=== PATIENT | female | born 1970 | race Caucasian/White ===

== ENCOUNTER 2019-08-16 11:11 | Inpatient (IN) | payer OTHER ==
[~2019-08-16] VITALS: Ht 170.2 cm; Wt 98.8 kg
[~2019-08-16 11:11] MED LIST changes: -ACET325 PO; -ASPI81CH PO; -B Complex-Foli1 EACH PO; -LISI20 PO; -Loratadine10 MG PO; -METO50ER PO; -SPIR25 PO; -TORSE20 PO
[2019-08-16] MEDS ORDERED: ACET325 PO (13:12)
[2019-08-16] MEDS ORDERED: B Complex-Foli1 EACH PO (13:13)
[2019-08-16] MEDS ORDERED: Loratadine10 MG PO (13:13)
--- NOTE | 2019-08-16 18:13 | NUR ---
Echocardiogram using 0.50ml of Definity contrast performed.
--- NOTE | 2019-08-16 19:14 | NUR ---
a+o, call light in reach, rm air, tele, saline locked, shared bsr with noc nurse and pt
[2019-08-17 06:03] LABS: Anion Gap 7 mmol/L (6-16); Blood Urea Nitrogen 14 mg/dL (8-24); Bun/Creatinine Ratio 16.4 (12.0-20.0); CO2, Blood 26 mmol/L (21-32); Calcium, Blood 8.6 mg/dL (8.5-10.1); Chloride, Blood 108 mmol/L (98-108); Creatinine, Blood 0.85 mg/dL (0.40-1.00); Glomerular Filtration Rate >60 (60-); Glucose, Blood 115 mg/dL (70-99); Potassium, Blood 4.4 mmol/L (3.5-5.5); Sodium, Blood 141 mmol/L (136-145)
--- NOTE | 2019-08-17 19:34 | NUR ---
SHIFT SUMMARY OKSANA HAD A MIGRAINE THIS MORNING, GIVEN TRAMADOL WHICH WAS EFFECTIVE. ALSO TOOK OFF NITRO PATCH WHICH HAD ?BEEN IN PLACE SINCE THE ED? THIS HELPED HER HEADACHE QUITE A BIT. ENGRAVER SET UP OPERATOR CAME, PT AWARE OF PLANNED R AND L CARDIAC CATH TO BE DONE POSSIBLY TUESDAY. KEPT ON 2L FLUID RESTRICTION WITHOUT PROBLEMS.
[2019-08-18 05:03] LABS: Anion Gap 5 mmol/L (6-16); Blood Urea Nitrogen 17 mg/dL (8-24); Bun/Creatinine Ratio 18.6 (12.0-20.0); CO2, Blood 31 mmol/L (21-32); Calcium, Blood 9.1 mg/dL (8.5-10.1); Chloride, Blood 106 mmol/L (98-108); Creatinine, Blood 0.92 mg/dL (0.40-1.00); Glomerular Filtration Rate >60 (60-); Glucose, Blood 105 mg/dL (70-99); Magnesium, Blood 2.4 mg/dL (1.6-2.4); Potassium, Blood 4.1 mmol/L (3.5-5.5); Sodium, Blood 142 mmol/L (136-145)
--- NOTE | 2019-08-18 06:30 | NUR ---
SHIFT SUMMARY PT IS A 48 Y/O FEMALE, ADMITTED WITH SOB AND DX WITH NEW ONSET CHF. SHE IS A&O X 3, INDEPENDENT IN THE ROOM. PT DENIED ANY COMPLAINTS OF PAIN, NAUSEA OR INCREASED SOB. O2 REMAINED > 90% ON RA. TELE SHOWED NSR IN THE 80S. ALL OTHER VITALS STABLE. PT HAD SHOWED AND LINEN CHANGE THIS AM. NO ACUTE CHANGES IN PT CONDITION NOTED. WILL CONTINUE TO MONITOR AND TREAT PER EMAR UNTIL HAND OFF TO DAY SHIFT RN.
--- NOTE | 2019-08-18 09:39 | NUR ---
PT DENIED PAIN THIS MORNING, CONSENTED BY DR ROMAN FOR ANGIO. LEFT VIA WC AROUND 0820,
--- NOTE | 2019-08-18 09:41 | NUR ---
ATTEMPTED TO CALL REPORT TO SPECIALIST PHYSICIANS, SHE IS UNAVAILABLE AND WILL CALL ME BACK
--- NOTE | 2019-08-18 09:50 | NUR ---
LUNG SOUNDS CLEAR. NOTED TO HAVE SLIGHT SHORTNESS OF BREATH, BUT DENIES IT WHEN ASKED. WITH OCCASSIONAL PRODUCTIVE COUGH. PULSES PALPABLE TO RADIAL AND PEDAL PULSES.
--- NOTE | 2019-08-18 10:01 | NUR ---
0945-RECEIVED THIS PT FROM INSTRUCTOR PRODUCT INSPECTION. AFEBRILE. PT IS ALERT AND ORIENTED. EXPLAINED TO PATIENT EXPECTATIONS OF HER CARE. PT HAS R RADIAL ACCESS SITE WITH TR BAND INFLATED WITH 11 CC AIR.
--- NOTE | 2019-08-18 11:09 | NUR ---
1100-DR. ROMAN WAS CALLED REGARDING PT'S ELEVATED BLOOD PRESSURE IN THE 180s. ORDERS RECEIVED. 1109-CALLED PT'S MOTHER MARVIN PER PATIENT'S REQUEST, MOTHER WAS UPDATED OF PT'S STATUS.
--- NOTE | 2019-08-18 12:26 | NUR ---
DEFLATED ANOTHER 2 CC AIR FROM TR BAND
--- NOTE | 2019-08-18 15:29 | NUR ---
ASSUMED PT CARE. PT A&[id number] PAIN OR NAUSEA. TR BAND TO RIGHT RADIAL SITE SUCCESSFULLY REMOVED AND CLEAR, OCCLUSIVE DRESSING PLACE. NO BLEEDING OR HEMATOMA. ARMBOARD IN PLACE AND RIGHT ARM ELEVATED ON PILLOW. PT MADE AWARE THAT SHE IS NOT TO BEAR WEIGHT ON RIGHT ARM AND IS TO KEEP IT STRAIGHT. PT VERBALIZES UNDERSTANDING THAT SHE IS NOT TO USE THE RIGHT ARM. RIGHT HAND PINK AND WARM AND SPO2 WITH GOOD PLETH. ECG SHOWS SR WITH LBBB-RATE 70-80'S. LUNGS CLEAR AND SATS>90% ON RA. HOWEVER, PT AUDIBLY WZ AT TIME. OCCASIONAL MOIST, NONPRODUCTIVE COUGH NOTED. PT GETTING UP TO BEDSIDE COMMODE WITH MINIMAL ASSIST. REPORT PHONED TO HUMPHREY LEES IN PREP TO TRANSFER PT TO ROOM PCU 10.
--- NOTE | 2019-08-18 16:49 | NUR ---
ASSUMED CARE: PT ARRIVED FROM ICU TO PCU 10. REPORT RECIEVED FROM HUMPHREY KIRBY. PT RESTING QUIELTY IN BED. NO ACUTE NEEDS OR CONCERNS
--- NOTE | 2019-08-18 18:08 | NUR ---
SHIFT SUMMARY: PT RESTING QUIETLY IN BED. ALERT, ORIENTED AND COOPERATIVE. TR BAND OFF AND RIGHT WRIST WITH NO SIGNS OF SWELLING, BLEEDING OR BRUISING. PT DENIES NEEDS OR CONCERNS. NSR WITH BBB ON TELE
[2019-08-19 03:53] LABS: BASOPHILS ABSOLUTE AUTO 0.07 K/mm3 (0.00-0.23); BASOPHILS PERCENT AUTO 1 % (0-2); EOSINOPHILS ABSOLUTE AUTO 0.55 K/mm3 (0.00-0.68); EOSINOPHILS PERCENT AUTO 5 % (0-6); Hematocrit 47.9 % (33.0-51.0); Hemoglobin 15.3 g/dL (11.5-16.0); IMMATURE GRAN ABSOLUTE AUTO 0.04 K/mm3 (0.00-0.10); IMMATURE GRAN PERCENT AUTO 0 % (0-1); LYMPHOCYTES ABSOLUTE AUTO 2.51 K/mm3 (0.84-5.20); LYMPHOCYTES PERCENT AUTO 22 % (21-46); MONOCYTES PERCENT AUTO 7 % (4-13); Mean Corpuscular HGB 30.3 pg (26.0-34.0); Mean Corpuscular HGB Conc 31.9 g/dL (31.5-36.5); Mean Corpuscular Volume 95 fL (80-100); NEUTROPHILS ABSOLUTE AUTO 7.36 K/mm3 (1.96-9.15); NEUTROPHILS PERCENT AUTO 65 % (41-73); Platelet Count 268 K/mm3 (150-400); RDW Coefficient Variation 14.6 % (11.7-14.2); RDW Standard Deviation 50.1 fL (35.1-46.3); Red Blood Cell Count 5.05 M/mm3 (3.80-5.20); White Blood Cell Count 11.33 K/mm3 (4.00-11.30)
[2019-08-19 04:13] LABS: Anion Gap 7 mmol/L (6-16); Blood Urea Nitrogen 18 mg/dL (8-24); Bun/Creatinine Ratio 18.8 (12.0-20.0); CO2, Blood 29 mmol/L (21-32); Chloride, Blood 104 mmol/L (98-108); Creatinine, Blood 0.96 mg/dL (0.40-1.00); Glomerular Filtration Rate >60 (60-); Glucose, Blood 104 mg/dL (70-99); Magnesium, Blood 2.5 mg/dL (1.6-2.4); Potassium, Blood 3.8 mmol/L (3.5-5.5); Sodium, Blood 140 mmol/L (136-145)
--- NOTE | 2019-08-19 05:46 | NUR ---
SHIFT SUMMARY NO ACUTE CHANGES NOTED THROUGH THE NIGHT. VSS, PT DENIES CP/PRESSURE. SOB WITH ACTIVITY, O2 SATS REMAIN >93% ON RA. RIGHT RADIAL SITE WNL, TEGADERM INTACT, ARM BOARD IN PLACE. PT EDUCATED ON ACTIVITY RESTRICTIONS. VOIDING WNL. INDEPENDENT IN THE ROOM, CALL LIGHT IN REACH.
--- NOTE | 2019-08-19 10:46 | NUR ---
TRANSFER TO 362. REPORT CALLED TO KELLEY FERRER RN. PT TO TRANSFER VIA W/C ACCOMPANIED BY AGRICULTURE ENGINEER. CONTINUE POT.
--- NOTE | 2019-08-19 18:00 | NUR ---
SHIFT SUMMARY PT AXO. PT TRANSFERRED TO THIS UNIT THIS EVENING. THIS SN FOUND PT CRYING IN ROOM, WHEN ASKED WHAT WAS WRONG, PT STATED, "I AM OVERWHELMED. I DO NOT KNOW WHAT TO DO WITH THIS NEW DX. MY IS IN [place] AND MY SON HAS STARTED USING HEROIN." THIS SN DISCUSSED A NEED FOR SPIRITUAL CARE WITH CTA. REFERRED PT TO PALLIATIVE CARE NURSE, KELLEY NGUYỄN RN. AFTER SHOWER PT SEEMED IN BETTER SPIRITS. PT IN BED, CALL LIGHT IN REACH.
--- NOTE | 2019-08-20 05:10 | NUR ---
SHIFT SUMMARY- PT. A&OX4, INDEPENDENT IN ROOM. NO ACUTE CHANGES OVERNIGHT. ASLEEP T/O THE NIGHT. NO APPARENT DISTRESS NOTED. PT. DENIED ANY PAIN OR DISCOMFORT THIS SHIFT. VSS, RT RADIAL WNL. PT. DENIED ANY NEEDS AT THIS TIME. CALL LIGHT WITHIN REACH AND SIDE RAILS UP X2. WILL CONT TO MONITOR.
[2019-08-20 05:32] LABS: Anion Gap 6 mmol/L (6-16); Blood Urea Nitrogen 22 mg/dL (8-24); Bun/Creatinine Ratio 24.1 (12.0-20.0); CO2, Blood 29 mmol/L (21-32); Calcium, Blood 9.2 mg/dL (8.5-10.1); Chloride, Blood 104 mmol/L (98-108); Creatinine, Blood 0.91 mg/dL (0.40-1.00); Glomerular Filtration Rate >60 (60-); Glucose, Blood 113 mg/dL (70-99); Magnesium, Blood 2.4 mg/dL (1.6-2.4); Potassium, Blood 3.9 mmol/L (3.5-5.5); Sodium, Blood 139 mmol/L (136-145)
[2019-08-20] MEDS ORDERED: ASPI81CH PO (12:00)
[2019-08-20] MEDS ORDERED: LISI20 PO (12:01)
[2019-08-20] MEDS ORDERED: METO50ER PO (12:02)
[2019-08-20] MEDS ORDERED: SPIR25 PO (12:02)
[2019-08-20] MEDS ORDERED: TORSE20 PO (12:03)
--- NOTE | 2019-08-20 12:15 | NUR ---
PT DC HOME ALL INSTRUCTIONS REVIEWED WITH PT WHO VERBALIZED AN UNDERSTANDING. PT REQUESTED TO SCHEDULE HER F/U APPTS AND HAS NEW PT PACKET FOR [facility] TO ESTABLISH HER PCP. IV REMOVED WITH NO ISSUE. MED REC FAXED TO PHARMACY ON FILE. ALL PERSONAL BELONGINGS SENT WITH PT. PT STABLE UPON DC.
--- NOTE | 2019-08-20 16:51 | NUR ---
AFTER PT DC TODAY HER MISSING TABLET WAS FOUND IN A BAG WITH HER NAME ON IT. PT WAS NOTIFIED AND STATED THAT SHE WOULD PICK IT UP FROM THE [facility] TOMORROW. NURSING SUP RUBIA WAS NOTIFIED AND THE TABLET WAS LEFT IN THE NURSING SUP OFFICE UNTIL ENERGY ADVISOR.
== END 2019-08-20 12:36 | disposition home or self-care (01) | DRG 280 ==
LOC: ER 11:11 → MEDS 11:12 → ICUE 08-18 09:26 → PCU 08-18 15:52 → MEDS 08-19 11:21 → ENPENDDIS 08-20 11:08 → MEDS 08-20 12:36
PROVIDERS: Internal Medicine Cardiovascular Disease; ADMIT Hospitalist
PROC: B2111ZZ Fluoroscopy of Multiple Coronary Arteries using Low Osmolar Contrast (ICD-10-PCS; principal; 2019-08-18)
PROC: 4A023N7 Measurement of Cardiac Sampling and Pressure, Left Heart, Percutaneous Approach (ICD-10-PCS; 2019-08-18)
DX: I11.0 Hypertensive heart disease with heart failure (principal); I50.21 Acute systolic (congestive) heart failure; I21.A1 Myocardial infarction type 2; F17.210 Nicotine dependence, cigarettes, uncomplicated; I42.0 Dilated cardiomyopathy; Z68.26 Body mass index [BMI] 26.0-26.9, adult; E66.01 Morbid (severe) obesity due to excess calories; I27.20 Pulmonary hypertension, unspecified; I08.1 Rheumatic disorders of both mitral and tricuspid valves; G43.909 Migraine, unspecified, not intractable, without status migrainosus; F15.10 Other stimulant abuse, uncomplicated; I95.9 Hypotension, unspecified
CPT/HCPCS: 36415; 71045; 71260; 80048; 83735; 83880; 84484; 85025; 93005; 93010; 93458; 93970; 94640; 99152; 99285-25; A9270; A9270-GY; C1769; C1894; C8929; J1644; J1650; J1940; J2250; J3010; J7030; Q9957; Q9967

== ENCOUNTER → 2019-08-16 | Outpatient (CLI) | payer OTHER ==
[~2019-08-16] MED LIST: ACEASPCAF PO; ACET325 PO; ASPI81CH PO; B Complex-Foli1 EACH PO; CARB200 PO; HYDACE5 PO; IBUP600 PO; LISI20 PO; Loratadine10 MG PO; METO50ER PO; SPIR25 PO; TORSE20 PO
[2019-08-16 11:08] LABS: BASOPHILS PERCENT AUTO 1 % (0-2); EOSINOPHILS ABSOLUTE AUTO 0.32 K/mm3 (0.00-0.68); EOSINOPHILS PERCENT AUTO 3 % (0-6); Hematocrit 44.3 % (33.0-51.0); Hemoglobin 14.7 g/dL (11.5-16.0); IMMATURE GRAN ABSOLUTE AUTO 0.02 K/mm3 (0.00-0.10); IMMATURE GRAN PERCENT AUTO 0 % (0-1); LYMPHOCYTES ABSOLUTE AUTO 2.59 K/mm3 (0.84-5.20); LYMPHOCYTES PERCENT AUTO 24 % (21-46); MONOCYTES ABSOLUTE AUTO 0.71 K/mm3 (0.16-1.47); MONOCYTES PERCENT AUTO 7 % (4-13); Mean Corpuscular HGB 31.3 pg (26.0-34.0); Mean Corpuscular HGB Conc 33.2 g/dL (31.5-36.5); Mean Corpuscular Volume 94 fL (80-100); Mean Platelet Volume 10.4 fL (9.1-12.4); NEUTROPHILS ABSOLUTE AUTO 7.24 K/mm3 (1.96-9.15); NEUTROPHILS PERCENT AUTO 66 % (41-73); Platelet Count 273 K/mm3 (150-400); RDW Coefficient Variation 14.9 % (11.7-14.2); RDW Standard Deviation 51.2 fL (35.1-46.3); White Blood Cell Count 10.98 K/mm3 (4.00-11.30)
[2019-08-16 11:26] LABS: Alanine Aminotransfer (ALT/SGP 54 U/L (12-78); Albumin, Blood 3.5 g/dL (3.4-5.0); Albumin/Globulin Ratio 1.1 (0.8-1.8); Alk Phos 69 U/L (40-126); Anion Gap 9 mmol/L (6-16); Aspartate Aminotrans (AST/SGOT 34 U/L (12-37); Bilirubin, Total 0.6 mg/dL (0.1-1.0); Blood Urea Nitrogen 14 mg/dL (8-24); Bun/Creatinine Ratio 14.4 (12.0-20.0); CO2, Blood 25 mmol/L (21-32); CPK Creatine Kinase 119 U/L (26-192); Calcium, Blood 8.7 mg/dL (8.5-10.1); Chloride, Blood 108 mmol/L (98-108); Creatinine, Blood 0.97 mg/dL (0.40-1.00); Globulin, Blood 3.2 g/dL (2.2-4.0); Glomerular Filtration Rate >60 (60-); Glucose, Blood 106 mg/dL (70-99); Potassium, Blood 4.7 mmol/L (3.5-5.5); Sodium, Blood 142 mmol/L (136-145); Thyroid Stimulating Hormone 1.947 uIU/mL (0.360-4.800); Total Protein, Blood 6.7 g/dL (6.4-8.2)
== END | disposition home or self-care (01) ==
LOC: LAB SHORT 10:57 → LAB EV 10:57
PROVIDERS: General Practice
DX: R06.00 Dyspnea, unspecified (principal); R10.9 Unspecified abdominal pain; R53.81 Other malaise
CPT/HCPCS: 80053; 82550; 83690; 84443; 84484; 85025; 85379

== ENCOUNTER 2019-08-25 11:53 | Emergency (ER) | payer OTHER ==
[~2019-08-25] VITALS: Ht 170.2 cm; Wt 113.4 kg
[~2019-08-25 11:53] MED LIST changes: +ACET325 PO; +Aspirin EC81 MG PO; +B Complex-Foli1 EACH PO; +LISI20 PO; +Loratadine10 MG PO; +METO50ER PO; +SPIR25 PO; +TORSE20 PO
[2019-08-25] MEDS ORDERED: ETHACRYNIC ACID25 MG PO (12:48)
== END 2019-08-25 13:08 | disposition home or self-care (01) ==
LOC: ER 11:53
DX: L50.0 Allergic urticaria (principal); T46.4X5A Adverse effect of angiotensin-converting-enzyme inhibitors, initial encounter; T44.7X5A Adverse effect of beta-adrenoreceptor antagonists, initial encounter; T50.1X5A Adverse effect of loop [high-ceiling] diuretics, initial encounter; T50.0X5A Adverse effect of mineralocorticoids and their antagonists, initial encounter; I50.9 Heart failure, unspecified; Z88.0 Allergy status to penicillin; Z79.82 Long term (current) use of aspirin; Z79.899 Other long term (current) drug therapy; F17.200 Nicotine dependence, unspecified, uncomplicated
CPT/HCPCS: 96374; 99283-25; J1200

== ENCOUNTER 2019-08-28 17:27 | Emergency (ER) | payer OTHER ==
[~2019-08-28] VITALS: Ht 170.2 cm; Wt 108.9 kg
[~2019-08-28 17:27] MED LIST changes: +ETHACRYNIC ACID25 MG PO
[2019-08-28] MEDS ORDERED: TORS10 (17:40)
[2019-08-28 18:37] LABS: BASOPHILS ABSOLUTE AUTO 0.05 K/mm3 (0.00-0.23); BASOPHILS PERCENT AUTO 0 % (0-2); EOSINOPHILS ABSOLUTE AUTO 0.65 K/mm3 (0.00-0.68); EOSINOPHILS PERCENT AUTO 5 % (0-6); Hematocrit 52.1 % (33.0-51.0); Hemoglobin 16.3 g/dL (11.5-16.0); IMMATURE GRAN ABSOLUTE AUTO 0.05 K/mm3 (0.00-0.10); IMMATURE GRAN PERCENT AUTO 0 % (0-1); LYMPHOCYTES ABSOLUTE AUTO 1.34 K/mm3 (0.84-5.20); LYMPHOCYTES PERCENT AUTO 10 % (21-46); MONOCYTES ABSOLUTE AUTO 0.68 K/mm3 (0.16-1.47); MONOCYTES PERCENT AUTO 5 % (4-13); Mean Corpuscular HGB 30.2 pg (26.0-34.0); Mean Corpuscular HGB Conc 31.3 g/dL (31.5-36.5); Mean Corpuscular Volume 97 fL (80-100); Mean Platelet Volume 10.4 fL (9.1-12.4); NEUTROPHILS ABSOLUTE AUTO 10.08 K/mm3 (1.96-9.15); NEUTROPHILS PERCENT AUTO 78 % (41-73); Platelet Count 249 K/mm3 (150-400); RDW Standard Deviation 50.3 fL (35.1-46.3); White Blood Cell Count 12.85 K/mm3 (4.00-11.30)
[2019-08-28 19:00] LABS: Albumin, Blood 3.7 g/dL (3.4-5.0); Anion Gap 5 mmol/L (6-16); Bilirubin, Total 0.5 mg/dL (0.1-1.0); Blood Urea Nitrogen 15 mg/dL (8-24); Bun/Creatinine Ratio 16.9 (12.0-20.0); CO2, Blood 27 mmol/L (21-32); Calcium, Blood 9.4 mg/dL (8.5-10.1); Chloride, Blood 108 mmol/L (98-108); Creatinine, Blood 0.89 mg/dL (0.40-1.00); Globulin, Blood 3.8 g/dL (2.2-4.0); Glomerular Filtration Rate >60 (60-); Glucose, Blood 90 mg/dL (70-99); Sodium, Blood 140 mmol/L (136-145); Total Protein, Blood 7.5 g/dL (6.4-8.2)
[2019-08-28 19:05] LABS: Troponin I 0.052 ng/mL (0.000-0.040)
[2019-08-28 19:09] LABS: Alanine Aminotransfer (ALT/SGP 39 U/L (12-78); Alk Phos 79 U/L (50-136); Aspartate Aminotrans (AST/SGOT 29 U/L (12-37)
[2019-08-28 20:35] LABS: U Amphetamine Screen DETECTED; U Barbituate Screen Not Detected; U Benzodiazapine Screen Not Detected; U Buprenorphine Screen Not Detected; U Cannabinoids Screen Not Detected; U Cocaine Screen Not Detected; U Methadone Screen Not Detected; U Methamphetamine Screen DETECTED; U Opiates Screen Not Detected; U Oxycodone Screen Not Detected; U Phencyclidine Screen Not Detected; U Propoxyphene Screen Not Detected
== END 2019-08-28 20:00 | disposition home or self-care (01) ==
LOC: ER 17:27
PROVIDERS: Physician Assistant
DX: R07.9 Chest pain, unspecified (principal); I50.9 Heart failure, unspecified; F17.210 Nicotine dependence, cigarettes, uncomplicated; Z88.0 Allergy status to penicillin; Z88.8 Allergy status to other drugs, medicaments and biological substances; Z79.899 Other long term (current) drug therapy; Z79.82 Long term (current) use of aspirin
CPT/HCPCS: 36415; 71046; 80053; 83690; 83880; 84484; 85025; 85379; 93005; 93010; 99285-25

== ENCOUNTER 2019-09-02 09:06 | Emergency (ER) | payer OTHER ==
[~2019-09-02] VITALS: Ht 170.2 cm; Wt 113.4 kg
[~2019-09-02 09:06] MED LIST changes: +TORS10
[2019-09-02] MEDS ORDERED: ISOSORBIDE MONO60 MG PO (09:21)
[2019-09-02] MEDS ORDERED: METO25ER PO (09:22)
[2019-09-02 09:41] LABS: BASOPHILS ABSOLUTE AUTO 0.07 K/mm3 (0.00-0.23); BASOPHILS PERCENT AUTO 1 % (0-2); EOSINOPHILS ABSOLUTE AUTO 0.51 K/mm3 (0.00-0.68); EOSINOPHILS PERCENT AUTO 4 % (0-6); Hematocrit 49.2 % (33.0-51.0); Hemoglobin 16.1 g/dL (11.5-16.0); IMMATURE GRAN ABSOLUTE AUTO 0.05 K/mm3 (0.00-0.10); IMMATURE GRAN PERCENT AUTO 0 % (0-1); LYMPHOCYTES ABSOLUTE AUTO 2.03 K/mm3 (0.84-5.20); LYMPHOCYTES PERCENT AUTO 18 % (21-46); MONOCYTES ABSOLUTE AUTO 0.75 K/mm3 (0.16-1.47); MONOCYTES PERCENT AUTO 7 % (4-13); Mean Corpuscular HGB 30.3 pg (26.0-34.0); Mean Corpuscular HGB Conc 32.7 g/dL (31.5-36.5); Mean Platelet Volume 10.3 fL (9.1-12.4); NEUTROPHILS ABSOLUTE AUTO 8.06 K/mm3 (1.96-9.15); NEUTROPHILS PERCENT AUTO 70 % (41-73); Platelet Count 266 K/mm3 (150-400); RDW Coefficient Variation 13.8 % (11.7-14.2); RDW Standard Deviation 47.1 fL (35.1-46.3); Red Blood Cell Count 5.31 M/mm3 (3.80-5.20); White Blood Cell Count 11.47 K/mm3 (4.00-11.30)
[2019-09-02 09:42] LABS: Mean Corpuscular Volume 93 fL (80-100)
[2019-09-02 09:55] LABS: Alanine Aminotransfer (ALT/SGP 35 U/L (12-78); Albumin, Blood 3.5 g/dL (3.4-5.0); Albumin/Globulin Ratio 0.9 (0.8-1.8); Alk Phos 70 U/L (50-136); Anion Gap 6 mmol/L (6-16); Aspartate Aminotrans (AST/SGOT 33 U/L (12-37); Bilirubin, Total 0.6 mg/dL (0.1-1.0); Blood Urea Nitrogen 9 mg/dL (8-24); Bun/Creatinine Ratio 12.9 (12.0-20.0); CO2, Blood 22 mmol/L (21-32); Chloride, Blood 110 mmol/L (98-108); Globulin, Blood 4.1 g/dL (2.2-4.0); Glomerular Filtration Rate >60 (60-); Glucose, Blood 116 mg/dL (70-99); Potassium, Blood 4.8 mmol/L (3.5-5.5); Sodium, Blood 138 mmol/L (136-145); Total Protein, Blood 7.6 g/dL (6.4-8.2); Troponin I 0.088 ng/mL (0.000-0.040)
== END 2019-09-02 11:16 | disposition home or self-care (01) ==
LOC: ER 09:06
PROVIDERS: Emergency Medicine
DX: R51 Headache (principal); R53.83 Other fatigue; T44.7X5A Adverse effect of beta-adrenoreceptor antagonists, initial encounter; T46.3X5A Adverse effect of coronary vasodilators, initial encounter; Z88.0 Allergy status to penicillin; Z79.82 Long term (current) use of aspirin; Z79.899 Other long term (current) drug therapy
CPT/HCPCS: 36415; 71046; 80053; 83880; 84484; 85025; 93005; 93010; 99284-25; A9270

== ENCOUNTER → 2019-11-27 | Outpatient (CLI) | payer OTHER ==
[~2019-11-27] MED LIST changes: +ISOSORBIDE MONO60 MG PO; -LISI20 PO; +METO25ER PO; +Prinivil10 MG PO
== END | disposition home or self-care (01) ==
LOC: LAB SHORT 07:53
DX: R87.612 Low grade squamous intraepithelial lesion on cytologic smear of cervix (LGSIL) (principal)
CPT/HCPCS: 88305

== ENCOUNTER 2022-03-03 16:10 | Emergency (ER) | payer OTHER ==
[~2022-03-03] VITALS: Ht 172.7 cm; Wt 127.0 kg
== END 2022-03-03 19:31 | disposition home or self-care (01) ==
LOC: ER 16:10
DX: M79.604 Pain in right leg (principal); Z88.0 Allergy status to penicillin; Z88.1 Allergy status to other antibiotic agents; Z88.8 Allergy status to other drugs, medicaments and biological substances; Z79.899 Other long term (current) drug therapy; Z79.82 Long term (current) use of aspirin; F17.210 Nicotine dependence, cigarettes, uncomplicated
CPT/HCPCS: 93971

== ENCOUNTER → 2022-08-19 | Outpatient (CLI) | payer OTHER ==
[2022-08-20 09:59] LABS: Candida species (DNA Probe) Negative (NEGATIVE); G. vaginalis (DNA Probe) Positive (NEGATIVE); T. vaginalis (DNA Probe) Negative (NEGATIVE)
== END | disposition home or self-care (01) ==
LOC: LAB 17:22 → LAB SHORT 17:22
PROVIDERS: Nurse Practitioner Family
DX: N89.8 Other specified noninflammatory disorders of vagina (principal)
CPT/HCPCS: 87480; 87510; 87660